=== PATIENT | female | born 1950 | race Caucasian/White ===

== ENCOUNTER → 2019-07-07 | Outpatient (CLI) | payer MEDICARE ==
--- NOTE | 2019-07-07 15:58 | KCIC ---
PELVIS W/TV History: Postmenopausal vaginal bleeding Comparison: None. Findings: Multiple transabdominal sonographic images of the pelvis are submitted. Pelvic structures are poorly seen. Transvaginal ultrasound: Multiple transvaginal sonographic images of the pelvis are submitted. There are several, variably hypoechoic foci of the cervix probably due to variably complex nabothian cysts. Uterus is estimated about 8.1 x 3.2 x 4 cm. No free fluid is demonstrated. Endometrium is thickened on the order of 1.2 cm. Neither ovary could be visualized. Impression: 1. Endometrium is thickened up to 1.2 cm, could be due to hyperplasia although neoplasm not excluded. 2. Neither ovary could be visualized. 3. There are what likely represent variably complex nabothian cysts. Electronically signed by: Brayan Soto MD (07/07/2019 3:54 PM) [id number]
== END | disposition home or self-care (01) ==
LOC: KCIC US 14:41
PROVIDERS: ATTEND Nurse Practitioner Family
DX: R93.89 Abnormal findings on diagnostic imaging of other specified body structures (principal)
CPT/HCPCS: 76830; 76856